=== PATIENT | female | born 1960 | race Caucasian/White ===

== ENCOUNTER 2016-09-13 00:09 | Emergency (ER) | payer BC ==
[~2016-09-13] VITALS: Ht 162.6 cm; Wt 88.3 kg
[~2016-09-13 00:09] MED LIST: ATN25T PO; AZEL137S NS; BPR150TCR PO; BPR75T PO; CPR500T PO; CYCL5TAB PO; DICY20TA10 PO; ESCI10TA49 PO; FLUT16SP NS; FRSM40T PO; HYDR-3811 PO; HYDR30CR71 RC; IBP200T PO; LAMO200T PO; MELA1TAB8 PO; MELO-249 PO; METR500T17 PO; MULT-305 PO; NF-TORA10 PO; OMEP40CA36 PO; POTA-57 PO; PRV20T PO; SUCR1TAB29 PO
--- OUTSIDE RECORDS SUMMARY | 2016-09-13 00:14 | XMS REPORT | Continuity of Care Document ---
Author Author [facility] Address Unknown Phone Unavailable Care Team Providers Care Childcare Worker Name Role Phone WHITNEY HAYES MD PCP [phone] Insurance Providers Payer Name Policy Number Subscriber Name Relationship [facility] [id number] Trisha Conner 18 Self / Same As Patient Advance Directives Directive Response Recorded Date/Time Advanced Directives No 07/01/16 5:45am Chief Complaint and Reason for Visit Chief Complaint Pain Reason for Visit Upper back pain Abdominal pain Problems Active Problems Medical Problem Onset Date Status Abdominal pain 06/2016 Acute Colovaginal fistula Unknown Acute Cystitis Unknown Acute Dyspepsia Unknown Acute Fever Unknown Acute Hemorrhoid ~11/16/2015 Acute LLQ pain Unknown Resolved Rectal bleeding ~11/16/2015 Acute Upper back pain 07/01/2016 Acute Surgical Problem Onset Date Status S/P colectomy Unknown Acute Medications Current Home Medications Medication Dose Units Route Directions Days/Qty Instructions Start Date Fluticasone Propionate 16 Gm 2 [place] Nasal Daily 06/21/15 Furosemide 40 Mg 40 Mg ORAL Daily 06/21/15 Atenolol (Tenormin) 25 Mg 25 Mg ORAL Daily 06/21/15 Pravastatin Sodium (Pravachol) 20 Mg 20 Mg ORAL Daily 06/21/15 Lamotrigine 200 Mg 200 Mg ORAL Daily 06/21/15 Bupropion Hcl (Wellbutrin Sr) 150 Mg 150 Mg ORAL Daily 11/16/15 Escitalopram Oxalate 10 Mg 10 Mg ORAL Daily 11/16/15 Ibuprofen (Motrin) 200 Mg 800 Mg ORAL Twice A Day as needed for Pain 11/16/15 Multivit With Calcium,Iron,Min 1 Each 1 Each ORAL Daily 11/16/15 Melatonin 1 Mg 2 Mg ORAL Bedtime 11/16/15 Azelastine Hcl (Astelin Nasal [place]) 137 Mcg/[place] 0 Mcg Nasal Twice A Day 1 11/20/15 Past Home Medications Medication Directions Ordered Status Sucralfate 1 Gm Tablet, 1 Gm Oral Four Times Daily 06/21/15 Discontinued Omeprazole 40 Mg Capsule.dr, 40 Mg Oral Daily 06/21/15 Discontinued Potassium Chloride 20 Meq Tablet.er, 20 Meq Oral Daily 06/21/15 Discontinued Bupropion Hcl (Wellbutrin) 75 Mg Tablet, 75 Mg Oral Twice A Day 06/21/15 Discontinued Hydrocortisone 30 Gm Cream..g., 30 Gm Rectal Twice A Day 11/16/15 Discontinued Hydrocodone Bit/Acetaminophen 1 Each Tablet, 1 Ea Oral Every 6 Hours as needed for Pain 11/20/15 Discontinued Ciprofloxacin 500 Mg Tablet, 500 Mg Oral Twice A Day 11/20/15 Discontinued Metronidazole 500 Mg Tab, 500 Mg Oral Every 8 Hrs On Schedule 11/20/15 Discontinued Cyclobenzaprine Hcl 5 Mg Tablet, 5 Mg Oral Three Times A Day 11/29/15 Discontinued Meloxicam 15 Mg Tablet, 15 Mg Oral Daily 11/29/15 Discontinued Dicyclomine Hcl 20 Mg Tablet, 20 Mg Oral Every 6 Hours as needed for Cramps 11/29/15 Discontinued Ketorolac Tromethamine 10 Mg Tab, 10 Mg Oral Every 6 Hr On Schedule 12/03/15 Discontinued Ciprofloxacin 500 Mg Tablet, 500 Mg Oral Twice A Day 12/26/15 Discontinued Social History Social History Problem Response Recorded Date/Time Onset Date Status Exposure to occupational hazards No 11/29/2015 12:20am Query Response Start Date Stop Date Smoking Status Former smoker Hospital Discharge Instructions No hospital discharge instructions. Plan of Care Discharge Date 07/01/16 9:18am Disposition 01 HOME OR SELF-CARE Condition at Discharge Stable Instructions/Education Provided Acute Abdominal Pain (ED) Prescriptions See Medication Section Referrals WHITNEY HAYES MD - Additional Instructions/Education Continue current medications Over the counter medications as needed for symptoms Follow up with Elle if not improved tomorrow Return if symptoms worsen Some of your test results may not be complete prior to your leaving the Emergency Department. The Emergency Department is not authorized to give test results over the phone. Please contact the doctor's office listed in this packet of information for your final results. Follow up with your primary care physician or return to the Emergency Department for worsening or worrisome symptoms. * Emergency Department phone number: [phone], x [phone]* MEDICAL RECORD If you need copies of your X-rays, call [phone]. If you need copies of your medical record, including lab results, a signed authorization for release of records will be required. A telephone call for release of Health Information is not allowed. BILLING Billing can sometimes be confusing and frustrating. To help avoid confusion in the future, please take a moment to acquaint yourself with the billing parties for services. SERVICE BILLING DEMO[employer]AT Emergency Room Services [facility] Physician Services [facility] X-rays [facility] Patients will receive bills for services from the appropriate provider. If you have any questions about your [facility] bill, our staff will be happy to assist you. Please call [phone], and ask for the billing department. THANK YOU for choosing [facility] as your emergency care provider! Care Plan and Goals ~~Discharge Care Plan~~ Problem: Abdominal pain Goal: Decreased level of pain. Return to usual activities. Instructions: Take medication(s) as directed; follow up with primary care physician as directed; follow patient home care instructions. Functional Status No functional status results. Allergies, Adverse Reactions, Alerts No known allergies. Immunizations No immunization records. Vital Signs Acute Vital Signs Vital Response Date/Time Temperature (Fahrenheit) 98.7 07/01/2016 5:45am Pulse 74 bpm 07/01/2016 9:19am Respirations 16 07/01/2016 9:19am Height 5 ft 4 in Weight 192 lb Body Mass Index 32.0 kg/m^2 Results Pending Laboratory Results Test Name Collection Date/Time Procedures Procedure Status Date Provider(s) CT CHEST SPINE W/O DYE Completed 06/14/16 3D RENDER W/INTRP POSTPROCES Completed 06/14/16 URINALYSIS AUTO W/O SCOPE Completed 06/17/16 Encounters Encounter Location Arrival/Admit Date Discharge/Depart Date Attending Provider Departed Emergency Room [facility] 07/01/16 5:41am 07/01/16 9:18am LISY BOB MD Registered Referred [facility] 06/17/16 3:52pm ADELINE BAUER Registered Clinic [facility] 06/14/16 8:42am ELLE SIMMONS CONTINUITY WRITER Recent Diagnosis
[2016-09-13] MEDS ORDERED: ORPH100T PO (00:31)
[2016-09-13] MEDS ORDERED: ED- HYDROcodone/ACETAMINOPHEN 5MG/325MG (NORCO) 6 TABLETS/BTL PO ONE (00:40)
[2016-09-13] MEDS ORDERED: AZITHROMYCIN 250 MG TAB (ZITHROMAX) PO ONE (00:40)
[2016-09-13] MEDS ORDERED: AZIT250T81 PO (00:45)
[2016-09-13] MEDS ORDERED: HYDR-3702 PO (00:45)
--- NOTE | 2016-09-13 01:05 | NUR ---
GAVE PATIENT A BACK MASSAGE PRIOR TO LEAVING. PT AMBULATED OUT OF ED WITH CARE INSTRUCTIONS AND TOGO PACK OF [place]. FIRST DOSE OF ANTIBIOTIC GIVEN IN ED.
[2016-09-13 01:15] VITALS: BP 144/95
[2016-11-10] MEDS ORDERED: ONDA4TAB8 PO (07:42)
[2016-11-10] MEDS ORDERED: HYDR-3702 PO (07:42)
[2016-11-17] MEDS ORDERED: POLY119P PO (21:27)
== END 2016-09-13 01:10 | disposition home or self-care (01) ==
LOC: ED 00:11
DX: J20.9 Acute bronchitis, unspecified (principal); J01.20 Acute ethmoidal sinusitis, unspecified; F17.210 Nicotine dependence, cigarettes, uncomplicated
CPT/HCPCS: 99282; 99283

== ENCOUNTER 2016-09-25 12:26 | Emergency (ER) | payer BC ==
[~2016-09-25] VITALS: Ht 162.6 cm; Wt 97.3 kg
[2016-09-25] MEDS ORDERED: SODIUM CHLORIDE FLUSH 3 ML SYR IV PRN (13:40)
[2016-09-25] MEDS ORDERED: SODIUM CHLORIDE FLUSH 10 ML SYR IV PRN (13:40)
[2016-09-25] MEDS ORDERED: meTOprolol 5 MG/5 ML (LOPRESSOR) VIAL IV ONE (13:40)
[2016-09-25 14:12] VITALS: BP 141/96
== END 2016-09-25 14:14 | disposition home or self-care (01) ==
LOC: EDUNIT# 12:26 → ED 12:29
DX: I10 Essential (primary) hypertension (principal)
CPT/HCPCS: 99282; 99283

== ENCOUNTER 2016-11-10 03:20 | Emergency (ER) | payer BC ==
[~2016-11-10] VITALS: Ht 162.6 cm; Wt 87.7 kg
[2016-11-10] MEDS ORDERED: SODIUM CHLORIDE FLUSH 3 ML SYR IV PRN (04:05)
[2016-11-10] MEDS: ONDANSETRON 2 MG/ML (Z0FRAN) 2 ML VIAL IV ONE ×2 (04:16→04:31)
[2016-11-10] MEDS: KETOROLAC 30 MG/ML (TORADOL) 1 ML VIAL IV ONE ×2 (04:29→04:33)
[2016-11-10] MEDS: SODIUM CHLORIDE FLUSH 10 ML SYR IV PRN ×2 (04:30→07:52)
[2016-11-10 04:32] LABS: BASOPHILS % (AUTO) 1 % (0-2); EOSINOPHILS # (AUTO) 0.3 10^3uL; EOSINOPHILS % (AUTO) 3 % (0-4); LYMPHOCYTES # (AUTO) 1.5 X10^3; MEAN CORPUSCULAR HEMOGLOBIN 30.7 PG (26.0-34.0); MEAN CORPUSCULAR HGB CONC 32.7 g/dL (31.0-37.0); MEAN CORPUSCULAR VOLUME 94 FL (80-100); MEAN PLATELET VOLUME 9.8 FL (6.0-9.5); MONOCYTES # (AUTO) 0.9 X10^3; MONOCYTES % (AUTO) 7 % (3-11); NEUTROPHILS # (AUTO) 9.9 X10^3; NEUTROPHILS % (AUTO) 78 % (51-67); PLATELET COUNT 204 10^3uL (150-450); WHITE BLOOD COUNT 12.69 10^3uL (4.0-11.0)
[2016-11-10 04:42] LABS: ALBUMIN 3.8 g/dL (3.4-5.0); ANION GAP 10.7 MEQ/L (3-15); CALCULATED IONIZED CALCIUM 4.2 mg/dL (3.8-4.6); TOTAL PROTEIN 6.4 g/dL (6.4-8.5)
[2016-11-10 05:20] LABS: BILIRUBIN,URINE Negative (Negative); CLARITY,URINE Clear; COLOR,URINE Yellow; GLUCOSE, URINE (UA) Negative (Negative); LEUKOCYTE ESTERASE ,URINE Negative (Negative); PH,URINE 7.5 (5.0 - 8.0); UROBILINOGEN,URINE 0.2 mg/dL (0.2-1.0)
[2016-11-10 05:21] LABS: URINE CENTRIFUGED VOLUME 12 mL
[2016-11-10 05:26] LABS: RBC,URINE 0-2 /HPF
[2016-11-10] MEDS ORDERED: ONDANSETRON 2 MG/ML (Z0FRAN) 2 ML VIAL IV ONE (07:50)
[2016-11-10 07:58] VITALS: BP 127/81
== END 2016-11-10 07:59 | disposition home or self-care (01) ==
LOC: ED 03:22
DX: R10.12 Left upper quadrant pain (principal)
CPT/HCPCS: 36415; 74022; 74177; 80053; 81003; 81015; 83690; 85025; 93005; 96361; 96374; 96375; 96376; 99283; J1885; J2405; J7030; Q9967; 93010; 99284

== ENCOUNTER → 2016-11-15 | Outpatient (CLI) | payer BC | LOC: RAD 08:48 | PROVIDERS: ATTEND Family Medicine | DX: M54.6 Pain in thoracic spine (principal) | CPT/HCPCS: 72128 ==

== ENCOUNTER 2016-11-17 17:56 | Emergency (ER) | payer BC ==
[~2016-11-17] VITALS: Ht 162.6 cm; Wt 86.0 kg
[2016-11-17] MEDS ORDERED: SODIUM CHLORIDE FLUSH 3 ML SYR IV PRN (18:30)
[2016-11-17] MEDS ORDERED: ONDANSETRON 2 MG/ML (Z0FRAN) 2 ML VIAL IV ONE (18:30)
[2016-11-17] MEDS ORDERED: SODIUM CHLORIDE FLUSH 10 ML SYR IV PRN (18:30)
[2016-11-17] MEDS ORDERED: KETOROLAC 30 MG/ML (TORADOL) 1 ML VIAL IV ONE (18:30)
[2016-11-17 19:00] LABS: BASOPHILS % (AUTO) 0 % (0-2); EOSINOPHILS # (AUTO) 0.3 10^3uL; EOSINOPHILS % (AUTO) 3 % (0-4); LYMPHOCYTES # (AUTO) 1.4 X10^3; MEAN CORPUSCULAR HEMOGLOBIN 31.2 PG (26.0-34.0); MEAN CORPUSCULAR HGB CONC 32.5 g/dL (31.0-37.0); MEAN CORPUSCULAR VOLUME 96 FL (80-100); MEAN PLATELET VOLUME 9.8 FL (6.0-9.5); MONOCYTES % (AUTO) 8 % (3-11); NEUTROPHILS # (AUTO) 8.6 X10^3; NEUTROPHILS % (AUTO) 75 % (51-67); PLATELET COUNT 225 10^3uL (150-450); WHITE BLOOD COUNT 11.41 10^3uL (4.0-11.0)
[2016-11-17 19:10] LABS: ANION GAP 13.1 MEQ/L (3-15); CALCULATED IONIZED CALCIUM 4.1 mg/dL (3.8-4.6); TOTAL PROTEIN 7.1 g/dL (6.4-8.5)
[2016-11-17] MEDS ORDERED: HYDROmorphone 1 MG/ML (DILAUDID) SYRINGE IV ONE (19:15)
--- NOTE | 2016-11-17 20:15 | NUR ---
pt up to the commode, gave ua, she states that her pain is a zero at this time
[2016-11-17] MEDS ORDERED: diphenhydrAMINE 50 MG/ML INJ (BENADRYL) IV ONE (20:25)
[2016-11-17 20:54] LABS: BILIRUBIN,URINE Negative (Negative); CLARITY,URINE Clear; COLOR,URINE Yellow; GLUCOSE, URINE (UA) Negative (Negative); LEUKOCYTE ESTERASE ,URINE Negative (Negative); PH,URINE 6.5 (5.0 - 8.0); UROBILINOGEN,URINE 0.2 mg/dL (0.2-1.0)
[2016-11-17 21:55] VITALS: BP 114/81
== END 2016-11-17 21:40 | disposition home or self-care (01) ==
LOC: ED 17:59
DX: R10.84 Generalized abdominal pain (principal); L29.9 Pruritus, unspecified; T50.8X5A Adverse effect of diagnostic agents, initial encounter; G47.34 Idiopathic sleep related nonobstructive alveolar hypoventilation; T45.0X5A Adverse effect of antiallergic and antiemetic drugs, initial encounter; Y92.238 Other place in hospital as the place of occurrence of the external cause
CPT/HCPCS: 36415; 74022; 74177; 80053; 81003; 82150; 83690; 85025; 86140; 96361; 96374; 96375; 99284; J1170; J1200; J1885; J2405; J7030; Q9967; 99283

== ENCOUNTER → 2016-12-23 | Outpatient (CLI) | payer BC ==
[~2016-12-23] MED LIST changes: +AZIT250T81 PO; +HYDR-3702 PO; +ONDA4TAB8 PO; +ORPH100T PO; +POLY119P PO
--- NOTE | 2016-12-24 12:40 | Diagnostic Imaging Report ---
EXAMINATION: Barium enema dated 12/23/2016. INDICATION: IBS, colonic stricture, abdominal pain, history of diverticulitis status post surgery. Question stricture. FINDINGS: Frontal medical director radiographs demonstrate no evidence for free air. Nonobstructed bowel gas pattern is noted. Double contrast barium enema was performed. All colonic segments are filled in a retrograde fashion via rectal tube. There does appear to be a focus of narrowing within the region of the sigmoid. On some images, it is quite narrow; however, this is likely due timing in peristalsis as it becomes more distended on subsequent images but is still narrow in relation to the remaining large bowel. This could be at the site of previous known surgery, but clinical correlation and perhaps colonoscopy may be warranted. The remaining colon demonstrates mild diverticular disease. Reflux into the distal small bowel loops is noted which appears unremarkable. No obstructive process is seen. No masses identified. Irregularity noted at the cecum perhaps due to small diverticula in that region as well or possibly on the basis of previous surgical changes. A definite mass is not seen, but again colonoscopy may provide better characterization. IMPRESSION: 1. Irregularity noted within the sigmoid region, see above discussion. Colonoscopy may provide better characterization and exclude an underlying abnormality. Some irregularity at the cecum could be further evaluated with colonoscopy as well, but no obvious masses or lesions appreciated. Dictated by: Dictated on workstation # [id number]
== END ==
LOC: RAD 09:04
PROVIDERS: ATTEND Internal Medicine Gastroenterology
DX: R10.32 Left lower quadrant pain (principal); K59.00 Constipation, unspecified
CPT/HCPCS: 74270